=== PATIENT | female | born 1975 | race Caucasian/White ===

== ENCOUNTER → 2024-03-26 | Outpatient (CLI) | payer OTHER, SELFPAY ==
--- NOTE | 2024-03-26 14:53 | ECHOD_ITS ---
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 Exam performed in department. Left Ventricle Normal LV size. The estimated ejection fraction is 55 %. No evidence for diastolic dysfunction. No regional wall motion abnormalities noted. Right Ventricle Normal RV size. Normal systolic function. Atria There is mild biatrial dilatation. No doppler evidence for ASD. Bubble contrast study negative for right to left interatrial shunt. Mitral Valve There is no mitral valve stenosis. Trivial mitral valve insufficiency. Tricuspid Valve There is no tricuspid stenosis. Trivial tricuspid valve insufficiency. Unable to estimate RV systolic pressure due to insufficient tricuspid regurgitant envelope. Aortic Valve Trisinus/trileaflet aortic valve. There is no aortic stenosis. No aortic valve insufficiency. Pulmonic Valve There is no pulmonic valvular stenosis. No pulmonic valve insufficiency. Great Vessels Normal aortic root. Pericardium/Pleural No pericardial effusion. Medication 22 gauge I.V. with prn adaptor inserted into right arm. Performed a rapid injection of agitated mix of 9 cc saline and 1cc air to assess for atrial septal defect. MMode/2D Measurements & Calculations LVIDd: 5.0 cm IVSd: 0.92 cm Ao root diam: 3.1 cm LVIDs: 3.8 cm LVPWd: 0.68 cm LA dimension: 3.4 cm RVDd: 3.4 cm FS: 24.3 % LAV(MOD-bp): 52.1 ml LVAd ap4: 27.3 cm2 SV(MOD-sp4): 41.2 ml LAV(MOD-bp) Indexed: 27.7 ml/m2 LVLd ap4: 7.8 cm LAV(MOD-sp2): 54.4 ml EDV(MOD-sp4): 78.4 ml LAV(MOD-sp4): 49.6 ml EDV(sp4-el): 81.6 ml LVAs ap4: 17.3 cm2 LVLs ap4: 6.7 cm ESV(MOD-sp4): 37.2 ml ESV(sp4-el): 37.9 ml EF(MOD-sp4): 52.5 % EF(sp4-el): 53.5 % SV(sp4-el): 43.7 ml LA A4 area: 17.6 cm2 RA A4 area: 13.7 cm2 TAPSE: 1.9 cm Time Measurements MV dec time: 0.20 sec Doppler Measurements & Calculations MV E max paul: 77.4 cm/sec Lat Peak E' Paul: 13.6 cm/sec Med Peak E' Paul: 11.8 cm/sec MV A max paul: 69.1 cm/sec E/E' lat: 5.7 E/E' med: 6.6 MV E/A: 1.1 MV V2 max: 81.6 cm/sec MV P1/2t max paul: 81.6 cm/sec Ao V2 max: 117.0 cm/sec MV max P.7 mmHg MV P1/2t: 63.9 msec Ao max P.5 mmHg MV V2 mean: 44.6 cm/sec Ao V2 mean: 79.3 cm/sec MV mean P.94 mmHg MV dec slope: 374.1 cm/sec2 Ao mean P.9 mmHg MV V2 VTI: 24.2 cm MVA(P1/2t): 3.4 cm2 Ao V2 VTI: 24.2 cm AV (velocity ratio): 0.90 LV V1 max: 100.8 cm/sec PA V2 max: 85.7 cm/sec LV V1 max P.1 mmHg PA max PG (full): 0.95 mmHg LV V1 mean P.1 mmHg PA V2 mean: 59.8 cm/sec LV V1 mean: 69.3 cm/sec PA mean PG (full): 0.62 mmHg LV V1 VTI: 21.9 cm ECHO/Echo Complete Interpretation Summary The estimated ejection fraction is 55 %. No evidence for diastolic dysfunction. Trivial mitral valve insufficiency. Ordering Physician: Yola Arreguin Referring Physician: Yola Arreguin Performed By: Yoav Berry RCS
== END | disposition home or self-care (01) ==
PROVIDERS: PCP Nurse Practitioner; Referring Provider Nurse Practitioner; Visit Provider Nurse Practitioner
DX: G08 Intracranial and intraspinal phlebitis and thrombophlebitis (principal); I34.0 Nonrheumatic mitral (valve) insufficiency
CPT/HCPCS: 93306; A4216

== ENCOUNTER → 2024-05-03 | Outpatient (CLI) | payer OTHER, SELFPAY ==
[2024-05-03 11:54] LABS: Absolute Lymphocyte Count 2.63 X10^3/uL (0.83-4.51); Absolute Neutrophil Count 3.9 X10^3/uL (2.0-7.7); Basophil# 0.03 X10^3/uL; Basophil% 0.4 % (0-1); Eosinophil# 0.07 X10^3/uL; Hematocrit 41.7 % (37-47); Hemoglobin 13.5 g/dL (12.0-15.0); Lymphocyte # 2.63 X10^3/ul (0.83-4.51); Lymphocyte % 36.6 % (19-41); Mean Corp Hgb Conc 32.4 g/dL (32-36); Mean Corpuscular Volume 83.4 fL (81-99); Mean Platelet Vol. 9.5 fl (6.2-12.0); Monocyte# 0.55 X10^3/uL; Monocyte% 7.6 % (0-10); NRBC Flagged by Analyzer 0 % (0-5); Neutrophil # 3.88 X10^3/uL (2.7-7.7); Platelet Count 306 K/mm3 (150-450); RBC Distribution Width SD 39.2 fl (35.1-43.9); White Blood Count 7.2 K/mm3 (4.4-11.0)
[2024-05-03 12:28] LABS: Hemoglobin A1c 5.2 % (3.8-5.6)
[2024-05-03 16:19] LABS: ALB/GLOB Ratio 0.9 RATIO (0.9-2.4); AST(SGOT) 38 U/L (15-37); Alanine Aminotransfer ALT/SGPT 59 U/L (13-56); Albumin, Serum 3.8 g/dL (3.2-5.0); Alkaline Phosphatase 131 U/L (45-117); Anion Gap 7 (5-15); BUN 7 mg/dL (7-18); BUN/Creat Ratio 9.4 RATIO (10-20); Calcium,Total 9.3 mg/dL (8.5-10.1); Chloride 105 mmol/L (98-107); Cholesterol 183 mg/dL (200); Creatinine, Serum 0.74 mg/dL (0.55-1.02); EST Glomerular Filtration Rate 88 mL/min (>60); Est Glom Filt Rate - Afr Amer 107 mL/min (>60); Globulin 4.3 g/dL (2.2-4.2); Glucose 100 mg/dL (74-106); High Density Lipoprotein 62 mg/dL; Protein, Total 8.1 g/dL (6.4-8.2); Sodium Level 137 mmol/L (136-145); T4 Free Direct 0.98 ng/dL (0.76-1.46); Triglycerides 128 mg/dL; Very Low Density Lipoprotein 26 mg/dL (5-40)
[2024-05-06 18:07] LABS: KEPPRA (LEVETIRACETAM) 44.7 ug/mL (10.0-40.0)
== END | disposition home or self-care (01) ==
LOC: BIMLAB 11:25
PROVIDERS: Nurse Practitioner; PCP Internal Medicine; Referring Provider Internal Medicine; Visit Provider Internal Medicine
DX: Z13.29 Encounter for screening for other suspected endocrine disorder (principal); G40.909 Epilepsy, unspecified, not intractable, without status epilepticus; G08 Intracranial and intraspinal phlebitis and thrombophlebitis; E78.2 Mixed hyperlipidemia
CPT/HCPCS: 36415; 80053; 80061; 80177; 83036; 84439; 84443; 85025